=== PATIENT | male | born 1945 | race Hispanic/Latino ===

== ENCOUNTER 2019-11-10 22:29 | Emergency (ER) | payer OTHER, MEDICARE ==
[2019-11-10 22:52] LABS: BASOPHILS % (AUTO) 0.3 % (0.0-5.0); HEMATOCRIT 27.5 % (42-54); LYMPHOCYTES % (AUTO) 30.8 % (21.0-51.0); MEAN CORPUSCULAR HEMOGLOBIN 26.8 pg (27.0-33.0); MEAN CORPUSCULAR HGB CONC 31.6 g/dL (32.0-36.0); MEAN CORPUSCULAR VOLUME 84.6 fL (79-99); MONOCYTES % (AUTO) 8.3 % (3.0-13.0); NEUTROPHILS % (AUTO) 58.3 % (40.0-77.0); PLATELET COUNT (AUTO) 188 K/uL (130-400); RED BLOOD CELL COUNT(AUTO) 3.25 MIL/uL (4.50-6.20); RED CELL DISTRIBUTION WIDTH 15.2 % (11.0-15.5); WHITE BLOOD COUNT (AUTO) 5.9 K/uL (4.8-10.8)
[2019-11-10 23:05] LABS: CREATININE 1.6 mg/dL (0.5-1.5); POTASSIUM 3.3 mmol/L (3.5-5.1)
[2019-11-10 23:09] LABS: ALBUMIN 3.9 g/dL (3.5-5.0); BILIRUBIN,TOTAL 0.3 mg/dL (0.2-1.0); TOTAL PROTEIN, SERUM 7.3 g/dL (6.0-8.3)
[2019-11-11] MEDS ORDERED: POTASSIUM BICARB/CIT AC 25 MEQ TABLET.EFF ONE (00:22)
[2019-11-11] MEDS ORDERED: SUCRALFATE 1 GM TABLET ONE (00:23)
== END 2019-11-11 00:49 | disposition home or self-care (01) ==
LOC: EDH 22:29
DX: R13.10 Dysphagia, unspecified (principal); R20.0 Anesthesia of skin; D64.9 Anemia, unspecified; N28.9 Disorder of kidney and ureter, unspecified; E87.6 Hypokalemia; E11.9 Type 2 diabetes mellitus without complications; I10 Essential (primary) hypertension
CPT/HCPCS: 36415; 70360; 71045; 80053; 82550; 84484; 85025; 93005

== ENCOUNTER 2019-11-14 14:11 | Emergency (ER) | payer OTHER, MEDICARE ==
[2019-11-14 14:53] LABS: BASOPHILS % (AUTO) 0.5 % (0.0-5.0); HEMATOCRIT 32.4 % (42-54); LYMPHOCYTES % (AUTO) 22.2 % (21.0-51.0); MEAN CORPUSCULAR HEMOGLOBIN 27.1 pg (27.0-33.0); MEAN CORPUSCULAR HGB CONC 32.1 g/dL (32.0-36.0); MEAN CORPUSCULAR VOLUME 84.4 fL (79-99); MONOCYTES % (AUTO) 7.5 % (3.0-13.0); NEUTROPHILS % (AUTO) 68.5 % (40.0-77.0); PLATELET COUNT (AUTO) 229 K/uL (130-400); RED BLOOD CELL COUNT(AUTO) 3.84 MIL/uL (4.50-6.20); RED CELL DISTRIBUTION WIDTH 15.1 % (11.0-15.5); WHITE BLOOD COUNT (AUTO) 6.3 K/uL (4.8-10.8)
[2019-11-14 15:14] LABS: CREATININE 1.7 mg/dL (0.5-1.5); POTASSIUM 3.2 mmol/L (3.5-5.1)
[2019-11-14 15:18] LABS: ALBUMIN 4.4 g/dL (3.5-5.0); BILIRUBIN,TOTAL 0.4 mg/dL (0.2-1.0); MAGNESIUM 2.5 mg/dL (1.80-2.40); TOTAL PROTEIN, SERUM 8.2 g/dL (6.0-8.3)
[2019-11-14] MEDS ORDERED: MAGNESIUM CITRATE 296 ML SOLUTION ONE (16:25)
== END 2019-11-14 16:28 | disposition home or self-care (01) ==
LOC: EDH 14:11
DX: K59.00 Constipation, unspecified (principal); E11.9 Type 2 diabetes mellitus without complications; E78.00 Pure hypercholesterolemia, unspecified
CPT/HCPCS: 36415; 74018; 80053; 83735; 85025

== ENCOUNTER 2019-11-22 14:23 | Observation (INO) | payer OTHER, MEDICARE ==
[~2019-11-22] VITALS: Ht 157.5 cm; Wt 73.5 kg
[2019-11-22 15:21] LABS: BASOPHILS % (AUTO) 0.3 % (0.0-5.0); EOSINOPHILS % (AUTO) 0.5 % (0.0-8.0); HEMATOCRIT 30.2 % (42-54); LYMPHOCYTES % (AUTO) 15.2 % (21.0-51.0); MEAN CORPUSCULAR HGB CONC 34.1 g/dL (32.0-36.0); MEAN CORPUSCULAR VOLUME 82.1 fL (79-99); MONOCYTES % (AUTO) 7.7 % (3.0-13.0); NEUTROPHILS % (AUTO) 75.9 % (40.0-77.0); PLATELET COUNT (AUTO) 218 K/uL (130-400); RED BLOOD CELL COUNT(AUTO) 3.68 MIL/uL (4.50-6.20); RED CELL DISTRIBUTION WIDTH 14.6 % (11.0-15.5); WHITE BLOOD COUNT (AUTO) 7.3 K/uL (4.8-10.8)
[2019-11-22 15:22] LABS: APPEARANCE,URINE Clear (CLEAR); BILIRUBIN,URINE Negative (NEGATIVE); COLOR,URINE Yellow (YELLOW); GLUCOSE, URINE (UA) Negative (NEGATIVE); KETONES,URINE Negative (NEGATIVE); LEUKOCYTE ESTERASE ,URINE Negative (NEGATIVE); NITRATE,URINE Negative (NEGATIVE); OCCULT BLOOD,URINE Negative (NEGATIVE); PROTEIN,URINE Negative (NEGATIVE); UROBILINOGEN,URINE 0.2 mg/dL (0.2-1.0)
[2019-11-22 15:41] LABS: ALBUMIN 4.3 g/dL (3.5-5.0); BILIRUBIN,TOTAL 0.5 mg/dL (0.2-1.0); CREATININE 1.6 mg/dL (0.5-1.5); POTASSIUM 3.8 mmol/L (3.5-5.1); TOTAL PROTEIN, SERUM 7.9 g/dL (6.0-8.3)
[2019-11-22] MEDS ORDERED: HYDROMORPHONE HCL 0.5 MG/0.5 ML ML IVP PRN (16:30)
[2019-11-22] MEDS ORDERED: SODIUM CHLORIDE 0.9% 1000ML 1,000 ML IV SCH (16:30)
[2019-11-22] MEDS ORDERED: HYDRALAZINE HCL 20 MG/ML VIAL IV PRN (16:30)
[2019-11-22] MEDS ORDERED: IPRATROPIUM/ALBUTEROL SULFATE 3 ML SOLUTION IH PRN (16:30)
[2019-11-22] MEDS ORDERED: ONDANSETRON HCL 4 MG/2 ML VIAL IVP PRN (16:30)
[2019-11-22] MEDS ORDERED: LABETALOL 20 MG/4 ML DISP.SYRIN IV PRN (16:30)
[2019-11-22 17:27] LABS: MEAN CORPUSCULAR HEMOGLOBIN 27.6 pg (27.0-33.0); MEAN CORPUSCULAR VOLUME 81.3 fL (79-99); PLATELET COUNT (AUTO) 208 K/uL (130-400); RED BLOOD CELL COUNT(AUTO) 3.69 MIL/uL (4.50-6.20); RED CELL DISTRIBUTION WIDTH 14.7 % (11.0-15.5); WHITE BLOOD COUNT (AUTO) 7.5 K/uL (4.8-10.8)
[2019-11-22 17:36] LABS: CREATININE 1.5 mg/dL (0.5-1.5); POTASSIUM 4.2 mmol/L (3.5-5.1)
[2019-11-22 18:00] VITALS: BP 160/67
[2019-11-22 19:00] VITALS: BP 124/52
[2019-11-22] MEDS: LACTATED RINGERS 1000ML 1,000 ML IV SCH (19:40)
[2019-11-22] MEDS ORDERED: ASPI-555 PO (23:00)
[2019-11-22] MEDS ORDERED: METF-444 PO (23:00)
[2019-11-22] MEDS ORDERED: LOSA50TA64 PO (23:00)
[2019-11-22] MEDS ORDERED: HYDR25TA PO (23:00)
[2019-11-22] MEDS ORDERED: TAMS-1 PO (23:00)
[2019-11-22] MEDS ORDERED: PIOG30TA70 PO (23:00)
[2019-11-22] MEDS ORDERED: PENT400T72 PO (23:00)
[2019-11-22] MEDS ORDERED: PANT40TA25 PO (23:00)
[2019-11-22] MEDS ORDERED: FERR-6 PO (23:00)
[2019-11-22] MEDS ORDERED: SUCR1TAB2 PO (23:00)
[2019-11-22 23:12] VITALS: BP 132/54
[2019-11-23] VITALS (14 sets, daily range): BP systolic 108–156; BP diastolic 36–103
[2019-11-23] MEDS: LACTATED RINGERS 1000ML 1,000 ML IV SCH (04:22)
[2019-11-23] MEDS ORDERED: PANTOPRAZOLE 40 MG/VIAL IVP SCH (09:00)
[2019-11-23 10:00] LABS: ALBUMIN 3.7 g/dL (3.5-5.0); BILIRUBIN,TOTAL 0.3 mg/dL (0.2-1.0); CREATININE 1.4 mg/dL (0.5-1.5); POTASSIUM 3.8 mmol/L (3.5-5.1); TOTAL PROTEIN, SERUM 6.8 g/dL (6.0-8.3)
[2019-11-23] MEDS ORDERED: LIDOCAINE HCL-MPF 2% 5ML VIAL ONE (10:19)
[2019-11-23] MEDS ORDERED: PROPOFOL 10 MG/ML 20ML VIAL IV ONE (10:19)
[2019-11-23] MEDS ORDERED: PANT40TA25 PO (12:26)
== END 2019-11-23 13:20 | disposition home or self-care (01) ==
LOC: EDH 14:23 → 3BH 16:10
PROVIDERS: ADMIT Internal Medicine Critical Care Medicine; ATTEND Internal Medicine Critical Care Medicine
DX: R13.10 Dysphagia, unspecified (principal); K22.2 Esophageal obstruction; E86.0 Dehydration; E87.1 Hypo-osmolality and hyponatremia; E11.9 Type 2 diabetes mellitus without complications; D64.9 Anemia, unspecified; I10 Essential (primary) hypertension; E78.5 Hyperlipidemia, unspecified; E87.8 Other disorders of electrolyte and fluid balance, not elsewhere classified
CPT/HCPCS: 36415 ×2; 43239; 43248; 71045; 80048; 80053 ×2; 81003; 82948 ×4; 84484; 85025; 85027; 93005; 94664; 96374; 99285; A4222; A4223; A4606; A4620; A4657; C9113; G0378 ×9; J2704; J3490; J7030; J7120 ×3

== ENCOUNTER 2019-12-05 13:32 | Emergency (ER) | payer OTHER, MEDICARE ==
[~2019-12-05 13:32] MED LIST: ASPI-555 PO; FERR-6 PO; HYDR25TA PO; LOSA50TA64 PO; METF-444 PO; PANT40TA25 PO; PENT400T72 PO; PIOG30TA70 PO; SUCR1TAB2 PO; TAMS-1 PO
[2019-12-05] MEDS ORDERED: LIDOCAINE HCL 2% VISCOUS 15 ML UDCUP ONE (14:55)
[2019-12-05] MEDS ORDERED: ACETAMINOPHEN ELIXIR 325 MG/10.15ML UDCUP ONE (14:55)
[2019-12-05] MEDS ORDERED: MAG HYDROX/AL HYDROX/SIMETH ES 30 ML SUSP UDCUP ONE (14:56)
== END 2019-12-05 16:32 | disposition home or self-care (01) ==
LOC: EDH 13:32
DX: R47.02 Dysphasia (principal); E11.9 Type 2 diabetes mellitus without complications; E78.5 Hyperlipidemia, unspecified
CPT/HCPCS: 70490

== ENCOUNTER 2019-12-23 07:07 | Day surgery (SDC) | payer OTHER, MEDICARE ==
[~2019-12-23] VITALS: Ht 157.5 cm; Wt 74.8 kg
[~2019-12-23 07:07] MED LIST changes: +SODIUM CHLORIDE 0.9% 1000ML 1,000 ML IV ONE
[2019-12-23 07:43] VITALS: BP 164/67
[2019-12-23] MEDS ORDERED: LIDOCAINE HCL 2% 20ML ONE (07:52)
[2019-12-23] MEDS ORDERED: PROPOFOL 10 MG/ML 20ML VIAL IV ONE (07:52)
[2019-12-23 08:18] VITALS: BP 135/68
[2019-12-23 08:23] VITALS: BP 142/61
[2019-12-23 08:28] VITALS: BP 139/72
[2019-12-23 08:33] VITALS: BP 146/76
[2019-12-23 08:39] VITALS: BP 137/69
== END 2019-12-23 08:50 | disposition home or self-care (01) ==
LOC: DAH 07:07
PROVIDERS: ATTEND Internal Medicine Gastroenterology
DX: D50.9 Iron deficiency anemia, unspecified (principal); K62.1 Rectal polyp; I10 Essential (primary) hypertension; E11.9 Type 2 diabetes mellitus without complications; E78.5 Hyperlipidemia, unspecified; K59.00 Constipation, unspecified; R13.10 Dysphagia, unspecified
CPT/HCPCS: 45380; 82948 ×2; A4215; A4221; A4222; A4223; A4606; A4620; A4663; J2704; J3490; J7030

== ENCOUNTER 2020-05-12 21:40 | Emergency (ER) | payer OTHER, MEDICARE ==
[~2020-05-12 21:40] MED LIST changes: -ASPI-555 PO; +ASPI-556 PO; -PANT40TA25 PO; +PANT40TA54 PO; +PANT40TA55 PO; -SODIUM CHLORIDE 0.9% 1000ML 1,000 ML IV ONE
[2020-05-12 22:28] LABS: BASOPHILS % (AUTO) 0.2 % (0.0-5.0); EOSINOPHILS % (AUTO) 0.4 % (0.0-8.0); HEMATOCRIT 32.3 % (42-54); LYMPHOCYTES % (AUTO) 18.8 % (21.0-51.0); MEAN CORPUSCULAR HEMOGLOBIN 30.3 pg (27.0-33.0); MEAN CORPUSCULAR HGB CONC 34.1 g/dL (32.0-36.0); MONOCYTES % (AUTO) 8.6 % (3.0-13.0); NEUTROPHILS % (AUTO) 71.6 % (40.0-77.0); PLATELET COUNT (AUTO) 168 K/uL (130-400); RED BLOOD CELL COUNT(AUTO) 3.63 MIL/uL (4.50-6.20); RED CELL DISTRIBUTION WIDTH 13.2 % (11.0-15.5); WHITE BLOOD COUNT (AUTO) 5.6 K/uL (4.8-10.8)
[2020-05-12 22:36] LABS: CREATININE 1.4 mg/dL (0.5-1.5); POTASSIUM 3.2 mmol/L (3.5-5.1)
[2020-05-12 22:40] LABS: INR 0.96 (0.85-1.15); PARTIAL THROMBOPLASTIN TIME 21.9 SEC (26.3-35.5); PROTHROMBIN TIME 10.4 SEC (9.6-11.6)
[2020-05-12 22:45] LABS: ALBUMIN 3.6 g/dL (3.5-5.0); BILIRUBIN,TOTAL 0.3 mg/dL (0.2-1.0); CRP QUANTITATIVE 24.3 mg/L (0.00-9.0); TOTAL PROTEIN, SERUM 7.3 g/dL (6.0-8.3)
[2020-05-12] MEDS ORDERED: ALBUTEROL INHALER 90MCG/INH IH ONE (22:51)
[2020-05-12] MEDS ORDERED: POTASSIUM CHLORIDE 20 MEQ ERTAB PO ONE (22:52)
[2020-05-13 00:09] LABS: ERYTHROCYTE SEDIMENTATION RATE 25 MM/HR (0-20)
== END 2020-05-12 23:41 | disposition home or self-care (01) ==
LOC: EDH 21:40
DX: U07.1 COVID-19 (principal); E11.9 Type 2 diabetes mellitus without complications; E78.5 Hyperlipidemia, unspecified
CPT/HCPCS: 36415; 71045; 80053; 82550; 84484; 85025; 85610; 85651; 85730; 86140; 87426; 87804; 93005

== ENCOUNTER → 2020-06-29 | Outpatient (CLI) | payer OTHER, MEDICARE ==
--- NOTE | 2020-06-29 10:40 | NUR ---
MBSS COMPLETED. -S/S OF ASPIRATION AT THIS TIME. RECOMMEND MECHANICAL SOFT/CHOPPED, THIN LIQUIDS, PILLS WHOLE WITH LIQUIDS TOLERATED. STOCK ANALYST REVIEW RESULTS AND RECOMMENDATIONS WITH PATIENT. STOCK ANALYST EDUCATED PATIENT ON RISKS AND CONSEQUENCES OF ASPIRATION AND PATIENT VOICED UNDERSTANDING. ALL QUESTIONS ANSWERED AT THIS TIME. PATIENT WAS REFERRED TO GI CONSULT FOR FURTHER EVALUATION OF SWALLOWING DISCOMFORT REPORTED NO ASPIRATION/PENETRATION NOTED DURING EVALUATION. Addendum: 06/29/[address] RAMONE TOMLINSON Amended: Links added.
== END | disposition home or self-care (01) ==
LOC: RAH 10:15
PROVIDERS: ATTEND Internal Medicine Gastroenterology
DX: R13.10 Dysphagia, unspecified (principal); R63.3 Feeding difficulties; R06.00 Dyspnea, unspecified
CPT/HCPCS: 74230; 92611

== ENCOUNTER → 2020-08-17 | Outpatient (CLI) | payer OTHER, MEDICARE | END | disposition home or self-care (01) | LOC: RAH 10:57 | PROVIDERS: ATTEND Internal Medicine Gastroenterology | DX: R14.0 Abdominal distension (gaseous) (principal); R68.81 Early satiety | CPT/HCPCS: 78264; A9541 ==